=== PATIENT | female | born 1965 | race Caucasian/White ===

== ENCOUNTER 2025-07-17 14:56 | Emergency (ER) | payer BC, SELFPAY ==
[2025-07-17 15:05] VITALS: BP 142/80; PULSE 96; RESP 18; TEMP 36.4; O2SAT 99
--- NOTE | 2025-07-17 15:45 | ED.EAR ---
HPI - Ear Problem General Chief complaint: Ear Stated complaint: Ear Irritation Time Seen by Provider: 07/17/25 15:39 Source: patient Mode of arrival: ambulatory Limitations: no limitations History of Present Illness HPI Narrative: 59-year-old female presents concern for right ear pain. She reports that started with drainage from the ear and some pain but now the pain has grown to her entire ear, and in front of her ear. She used [id number] ear drops without relief. She denies fever. Reports pain in the ear when she opens her mouth. MD Complaint: ear pain Related Data Allergies Allergy/AdvReac Type Severity Reaction Status Date / Time codeine Allergy Mild hives Verified 07/17/25 15:11 morphine Allergy Mild hives Verified 07/17/25 15:11 Penicillins Allergy Mild hives and Verified 07/17/25 15:11 swelling ALL CILLINS Allergy Mild hives and Uncoded 06/17/23 08:27 swelling NKFA Allergy Unknown unknown Uncoded 02/19/23 16:35 Review of Systems Review of Systems: CONSTITUTIONAL: Denies malaise, chills, sweats, or fever. EYES: Denies visual changes, redness, or discharge. ENT: Denies rhinorrhea, congestion, sinus pain, and sore throat. Reports right ear pain and drainage CARDIOVASCULAR: Denies chest pain, palpitations, or edema. RESPIRATORY: Denies cough. Denies dyspnea. GASTROINTESTINAL: Denies abdominal pain, nausea, vomiting, diarrhea SKIN: Denies rash or itching. MUSCULOSKELETAL: Denies myalgia. NEUROLOGIC: Denies headache. All systems reviewed & are unremarkable except as noted in HPI and below PMFSH Past Medical History Medical History (Updated 07/17/25 @ 15:48 by Corin Mcdonough APRN) History of medication noncompliance High risk medication use Smoker History of electroconvulsive therapy Spigelian hernia Colon polyps Chronic migraine GERA (generalized anxiety disorder) Bipolar 1 disorder, depressed, severe Surgical History Surgical History S/P JOYCELYN (total abdominal hysterectomy) Status post spigelian hernia repair, follow-up exam Hx of colonoscopy 2016, repeat in 3 years( 2019) Family History Family History Father Depression Hypertension Family history of elevated blood lipids Family history of diabetes mellitus in first degree relative Sibling Depression Mother Hypertension Family history of elevated blood lipids Family history of diabetes mellitus in first degree relative Social History Social History (Updated 02/19/23 @ 16:41 by Linda Marie) Social History: Smoking packs per day: 2 Smoking cigarettes per day: 40.0 Years smoked: 10 Smoking pack-years: 20.00 Smoking status: Current every day smoker Tobacco type: cigarettes Second hand tobacco smoke exposure: Yes Alcohol intake: current Substance use: never Substance use type: does not use Lack of Transportation: No Lack of Food: Never True Current Housing: I Have Housing Concerned About Future Housing: No Difficulty Paying Gas/Electric Bills: No Difficulty Paying for Meds: No Currently Unemployed: YES Education: Decline to Answer Difficulty w/ Childcare or Family Care: No Living arrangements: with family Occupation/Education: unemployed Gender identity (if verbalized by the patient): Female Sexual Orientation (if Verbalized by the Patient): Straight or Heterosexual Spiritual care concerns: No Comments At time of signature, agree with nursing past medical, surgical, social and family history. There is no relevant family history pertinent to the presenting complaint Exam Narrative: GENERAL: Well-appearing, well-nourished, and in no acute distress. HEAD: Normocephalic EYES: PERRLA, conjunctivae clear ENT: Nares clear. Mucous membranes moist. TM pearly lawrence with dull light reflex bilaterally; right tragal tenderness, right EAC erythematous and edematous, right pre-auricular erythema, tenderness, and edema noted without induration or warmth noted. Oropharynx not erythematous without lesions. Tonsils not enlarged and without exudate, no drooling, no hoarseness, no trismus, uvula midline. NECK: Supple. No lymphadenopathy CHEST: No respiratory distress, speaks in full sentences. HEART: Regular rate and rhythm. No murmur heard. SKIN: Warm, dry, no rash. NEURO: Alert and oriented x3. PSYCH: Normal mood and affect Course Course Emergency Course: Patient is aware of diagnosis, understands and agrees to treatment plan. Anticipatory guidance given. Patient agrees to follow-up as directed and is aware of reasons to seek care at the emergency department. Portions of this record may have been created with voice recognition software Level of Care: Express Care Visit Vital Signs Vital signs: Vital Signs Temperature 97.6 F 07/17/25 15:05 Pulse Rate 96 07/17/25 15:05 Respiratory Rate 18 07/17/25 15:05 Blood Pressure 142/80 H 07/17/25 15:05 Pulse Oximetry 99 07/17/25 15:05 Oxygen Delivery Room Air 07/17/25 15:05 Temperature 97.6 F 07/17/25 15:05 Pulse Rate 96 07/17/25 15:05 Respiratory Rate 18 07/17/25 15:05 Blood Pressure 142/80 H 07/17/25 15:05 Pulse Oximetry 99 07/17/25 15:05 Oxygen Delivery Room Air 07/17/25 15:05 Reviewed. Medical Decision Making MDM Narrative Medical decision making narrative: I evaluated this in the [facility] care. History is obtained from patient who is an independent historian and physical exam was performed.? Available medical records were reviewed. ? Exam findings and relevant testing show no acute concerns or changes; patient is non-toxic appearing and is in no distress. Differential diagnosis considered: Andrews virus, strep pharyngitis, allergic rhinitis, upper respiratory tract infection, sinusitis, rhinosinusitis, nasopharyngitis. viral pharyngitis, otitis media, otitis externa, otitis effusion, pre/post auricular cellulitis, mastoiditis, cerumen impaction, foreign body. Exam findings show no acute concerns or changes; patient is non-toxic appearing and is in no distress. Patient is appropriate for outpatient treatment and follow-up. ? Differential diagnosis and treatment plan were discussed with the patient. Patient agrees with discussion and after shared medical decision making agrees with plan of care. All questions were answered to the patient's satisfaction. Patient is appropriate for outpatient treatment and follow-up. Vital Signs Vital Signs: Vital Signs Temperature 97.6 F 07/17/25 15:05 Pulse Rate 96 07/17/25 15:05 Respiratory Rate 18 07/17/25 15:05 Blood Pressure 142/80 H 07/17/25 15:05 Pulse Oximetry 99 07/17/25 15:05 Oxygen Delivery Room Air 07/17/25 15:05 Temperature 97.6 F 07/17/25 15:05 Pulse Rate 96 07/17/25 15:05 Respiratory Rate 18 07/17/25 15:05 Blood Pressure 142/80 H 07/17/25 15:05 Pulse Oximetry 99 07/17/25 15:05 Oxygen Delivery Room Air 07/17/25 15:05 Critical Care Time Critical Care Time Critical Care Time: No Discharge Plan Discharge Clinical Impression: Cellulitis of right external ear Patient Disposition: Home Condition: Stable Instructions: Antibiotic Form, Cellulitis (ED) Additional Instructions: Please follow up with your Primary Care Doctor within 48-72 hours - call for an appointment. Rest and elevate affected area; apply moist heat 3-4 times daily for 10-15 minutes. Take Motrin 600mg every 8 hours with food for pain. Please take Antibiotics as directed. If you experience any worsening redness, swelling, streaking (red lines), fever or chills please go to the ER Patient Language: Spanish Prescriptions: New ciprofloxacin HCl 500 mg tablet 500 mg PO Q12H 7 Days Qty: 14 0RF ofloxacin 0.3 % drops 5 drp RIGHT EAR DAILY 7 Days Qty: 10 0RF No Action fluoxetine 20 mg capsule 20 mg PO BID Qty: 180 1RF Patient Comments: Not taking as she needs refill 07/17/25 Follow-up/Referrals: PHYSICIAN,CASING IN LINE SETTER [Primary Care Provider, Internal Medicine] Time of Disposition: 15:49
== END 2025-07-17 15:53 | disposition home or self-care (01) ==
PROVIDERS: Emergency Provider Nurse Practitioner
DX: H60.11 Cellulitis of right external ear (principal); F17.210 Nicotine dependence, cigarettes, uncomplicated; F41.1 Generalized anxiety disorder
CPT/HCPCS: 99213; G0463